=== PATIENT | male | born 1950 | race Two or more races ===

== ENCOUNTER 2023-07-12 14:20 | Inpatient (IN) | payer OTHER ==
[~2023-07-12] VITALS: Ht 152.4 cm; Wt 103.9 kg
[2023-07-12] MEDS ORDERED: HUMALOG100 UNIT/2 IM (15:11)
[2023-07-12] MEDS ORDERED: SIMVASTATIN20 MG PO (15:12)
[2023-07-12 17:28] LABS: HEMATOCRIT 41.8 % (39.0-48.0); MEAN CELL VOLUME 91.3 fL (80.0-100.00); MEAN CORPUSCULAR HEMOGLOBIN 30.6 pg (27.00-32.0); MEAN CORPUSCULAR HGB CONC 33.5 g/dl (32.0-36.0); PLATELET COUNT 368 K/uL (150-450); RED BLOOD COUNT 4.58 M/uL (4.00-6.00); RED CELL DISTRIBUTION WIDTH 14.3 % (11.5-14.5)
[2023-07-12 17:29] LABS: URINE APPEARANCE Clear; URINE BILIRRUBIN Negative (NEGATIVE); URINE BLOOD Negative; URINE COLOR Yellow; URINE LEUKOCYTE Negative; URINE NITRATE Negative; URINE PROTEIN Negative (NEGATIVE); URINE UROBILINOGEN 0.2 E.U./dl
[2023-07-12 17:33] LABS: URINE BACTERIA 21.3 uL (0.0-1933); URINE WBC 3.3 uL (0.0-23.2)
[2023-07-12 17:34] LABS: URINE EPITHELIAL CELLS 0.6 uL (0.0-38.8); URINE GLUCOSE 250 MG/DL (NEGATIVE); URINE RBC 0.2 uL (0.0-20.8)
[2023-07-12 17:44] LABS: CALCIUM 9.9 mg/dL (8.5-10.1); CREATININE SERUM 1.65 mg/dL (0.70-1.30); ERYTHROCYTE SEDIMENTATION RATE 43 mm/hr; GFR 41.1; POTASSIUM 4.37 mEq/L (3.5-5.1)
[2023-07-12 23:44] LABS: INR 1.04; PARTIAL THROMBOPLASTIN TIME 29.1 SECONDS (22.0-34.0); PROTHROMBIN TIME 10.9 SECONDS (9.0-11.5)
[2023-07-14 07:06] LABS: URIC ACID 3.1 mg/dL (3.5-8.5)
[2023-07-14 07:12] LABS: CREATININE SERUM 1.48 mg/dL (0.8-1.3)
[2023-07-15 10:27] LABS: CREATININE URINE 33.6 MG/DL; URINE PROT QUANT 24HR 7.5 MG/DL
[2023-07-15 10:54] LABS: URINE PROT QUANT 24 HR 213.75 MG/24HR (42-225)
[2023-07-17 07:15] LABS: ALBUMIN 3.5 gm/dL (3.4-5.0); BILIRUBIN TOTAL 0.43 mg/dL (0.3-1.2); CALCIUM 9.5 mg/dL (8.5-10.1); CREATININE SERUM 1.46 mg/dL (0.70-1.30); GFR 47.33; POTASSIUM 4.42 mEq/L (3.5-5.1); TOTAL PROTEIN 6.5 gm/dL (6.4-8.2)
[2023-07-17 07:29] LABS: HEMATOCRIT 36.2 % (39.0-48.0); HEMOGLOBIN 12.5 g/dL (13-16.00); MEAN CELL VOLUME 89.9 fL (80.0-100.00); MEAN CORPUSCULAR HEMOGLOBIN 30.9 pg (27.00-32.0); MEAN CORPUSCULAR HGB CONC 34.4 g/dl (32.0-36.0); PLATELET COUNT 337 K/uL (150-450); RED BLOOD COUNT 4.03 M/uL (4.00-6.00); RED CELL DISTRIBUTION WIDTH 13.9 % (11.5-14.5)
[2023-07-17 07:44] LABS: ERYTHROCYTE SEDIMENTATION RATE 29 mm/hr
[2023-07-22] MEDS ORDERED: MONDOXYNE NL100 MG PO (17:05)
[2023-07-22] MEDS ORDERED: INTESTINEX680 M2 PO (17:05)
[2023-07-22] MEDS ORDERED: AMOX-CLAV 875-1 EAC1 PO (17:05)
== END 2023-07-22 17:30 | disposition home or self-care (01) | DRG 623 ==
LOC: ER 14:21 → SURG 20:23
PROVIDERS: General Practice; Nurse Practitioner Family; Specialist/Technologist, Other Nephrology; ADMIT Internal Medicine; ATTEND Internal Medicine
PROC: 0JBP0ZZ Excision of Left Lower Leg Subcutaneous Tissue and Fascia, Open Approach (ICD-10-PCS; principal; 2023-07-13)
PROC: 0JDP0ZZ Extraction of Left Lower Leg Subcutaneous Tissue and Fascia, Open Approach (ICD-10-PCS; 2023-07-19)
PROC: 2W1MX6Z Compression of Left Lower Extremity using Pressure Dressing (ICD-10-PCS; 2023-07-19)
DX: E11.622 Type 2 diabetes mellitus with other skin ulcer (principal); L03.116 Cellulitis of left lower limb; L97.923 Non-pressure chronic ulcer of unspecified part of left lower leg with necrosis of muscle; E78.5 Hyperlipidemia, unspecified; S80.12XA Contusion of left lower leg, initial encounter; W10.9XXA Fall (on) (from) unspecified stairs and steps, initial encounter; Y93.9 Activity, unspecified; Y92.9 Unspecified place or not applicable; N17.9 Acute kidney failure, unspecified; E11.22 Type 2 diabetes mellitus with diabetic chronic kidney disease; I12.9 Hypertensive chronic kidney disease with stage 1 through stage 4 chronic kidney disease, or unspecified chronic kidney disease; N18.30 Chronic kidney disease, stage 3 unspecified; Z79.4 Long term (current) use of insulin; E11.21 Type 2 diabetes mellitus with diabetic nephropathy; Z20.822 Contact with and (suspected) exposure to COVID-19